=== PATIENT | male | born 1990 | race Caucasian/White ===

== ENCOUNTER 2019-08-13 10:54 | Emergency (ER) | payer BC ==
[2019-08-13] MEDS ORDERED: DIAZEPAM 5 MG TABLET ONE (11:40)
[2019-08-13] MEDS ORDERED: KETOROLAC 30 MG/ML INJ ONE (11:40)
[2019-08-13] MEDS ORDERED: TRAMADOL HCL 50 MG TAB ONE (11:42)
--- NOTE | 2019-08-13 11:49 | ER ---
Nurse's Notes [facility] Name: Miguelito Roper Age: 29 yrs Sex: Male : 1990 Arrival Date: 08/13/2019 Time: 10:58 Bed 20 Private MD: Diagnosis: Sprain of other parts of lumbar spine and pelvis Presentation: 08/13 11:21 Presenting complaint: Patient states: low back pain x 3 days after playing with children. Transition of care: patient was not received from another setting of care. Onset of symptoms was August 10, 2019. Risk Assessment: Do you want to hurt yourself or someone else? Patient reports no desire to harm self or others. Initial Sepsis Screen: Does the patient meet any 2 criteria? No. Patient's initial sepsis screen is negative. Does the patient have a suspected source of infection? No. Patient's initial sepsis screen is negative. Care prior to arrival: None. 11:21 Method Of Arrival: Ambulatory ss 11:21 Acuity: ADÁN 4 ss Triage Assessment: 11:25 General: Appears in no apparent distress. uncomfortable, Behavior is calm, cooperative, bp appropriate for age. Pain: Complains of pain in back. EENT: No deficits noted. Neuro: No deficits noted. Cardiovascular: No deficits noted. Respiratory: No deficits noted. GI: No signs and/or symptoms were reported involving the gastrointestinal system. : No signs and/or symptoms were reported regarding the genitourinary system. Derm: No deficits noted. Musculoskeletal: Circulation, motion, and sensation intact. Range of motion: intact in all extremities. Historical: - Allergies: 11:22 No Known Allergies; ss - Home Meds: 11:22 None [Active]; ss - PMHx: 11:22 None; ss - PSHx: 11:22 None; ss - Immunization history:: Adult Immunizations up to date. - Social history:: Smoking status: Patient reports the use of cigarette tobacco products, smokes one-half pack cigarettes per day. - Ebola Screening: : Patient denies exposure to infectious person Patient denies travel to an Ebola-affected area in the 21 days before illness onset. Screenin:57 Abuse screen: Denies threats or abuse. Denies injuries from another. Nutritional bp screening: No deficits noted. Tuberculosis screening: No symptoms or risk factors identified. Fall Risk None identified. Assessment: 11:25 General: SEE TRIAGE NOTE. Pain: Complains of pain in back. Neuro: Level of bp Consciousness is awake, alert, obeys commands, Oriented to person, place, time, situation, Appropriate for age Gait is steady. 11:55 Reassessment: PT D/C HOME AMBULATORY WITH FAMILY, DX WITH BACK SPRAIN. bp Vital Signs: 11:21 BP 140 / 86; Pulse 82; Resp 16; Pulse Ox 99% on R/A; Weight 99.79 kg; Height 5 ft. 10 ss in. (177.80 cm); Pain 6/10; 11:21 Body Mass Index 31.57 (99.79 kg, 177.80 cm) ED Course: 10:58 Patient arrived in ED. ds1 11:19 Nav Ricketts, RN is Primary Nurse. bp 11:19 Enrique Mendoza MD is Attending Physician. tw4 11:21 Arm band placed on right wrist. ss 11:22 Triage completed. ss 11:57 Patient has correct armband on for positive identification. Bed in low position. Call bp light in reach. Side rails up X2. Adult w/ patient. 11:57 No provider procedures requiring assistance completed. Patient did not have IV access bp during this emergency room visit. Administered Medications: 11:40 Drug: TORadol 60 mg Route: IM; Site: right gluteus; bp 11:54 Follow up: Response: Pain is decreased bp 11:40 Drug: Valium 10 mg Route: PO; bp 11:55 Follow up: Response: Pain is decreased bp 11:40 Drug: traMADol 50 mg Route: PO; bp 11:55 Follow up: Response: Pain is decreased bp Outcome: 11:48 Discharge ordered by . tw4 11:58 Discharged to home ambulatory, with family. bp 11:58 Condition: stable 11:58 Discharge instructions given to patient, Instructed on discharge instructions, follow up and referral plans. medication usage, Demonstrated understanding of instructions, follow-up care, medications, Prescriptions given X 3. 11:58 Patient left the ED. bp Signatures: Kandice Rebollar ds1 Liliana Jose RN RN ss Nav Ricketts, JUANIS RN bp Enrique Mendoza MD MD tw4
--- NOTE | 2019-08-13 11:49 | EDPHYS ---
Physician Documentation [facility] Name: Miguelito Roper Age: 29 yrs Sex: Male : 1990 Arrival Date: 08/13/2019 Time: 10:58 Bed 20 Private MD: ED Physician Enrique Mendoza HPI: 08/13 11:40 This 29 yrs old Male presents to ER via Ambulatory with complaints of Back tw4 Pain. 11:40 The patient presents with pain that is acute, with no known mechanism of injury. The tw4 symptoms are located in the low back. Onset: The symptoms/episode began/occurred 3 day(s) ago. The pain does not radiate. Associated signs and symptoms: The patient has no apparent associated signs or symptoms. The problem was sustained from unknown cause. Modifying factors: The patient symptoms are alleviated by nothing, the patient symptoms are aggravated by nothing. The patient has not experienced similar symptoms in the past. Historical: - Allergies: 11:22 No Known Allergies; ss - Home Meds: 11:22 None [Active]; ss - PMHx: 11:22 None; ss - PSHx: 11:22 None; ss - Immunization history:: Adult Immunizations up to date. - Social history:: Smoking status: Patient reports the use of cigarette tobacco products, smokes one-half pack cigarettes per day. - Ebola Screening: : Patient denies exposure to infectious person Patient denies travel to an Ebola-affected area in the 21 days before illness onset. ROS: 11:40 Constitutional: Negative for fever, chills, and weight loss, Eyes: Negative for injury, tw4 pain, redness, and discharge, Cardiovascular: Negative for chest pain, palpitations, and edema, Respiratory: Negative for shortness of breath, cough, wheezing, and pleuritic chest pain, Abdomen/GI: Negative for abdominal pain, nausea, vomiting, diarrhea, and constipation, MS/Extremity: Negative for injury and deformity, Skin: Negative for injury, rash, and discoloration, Neuro: Negative for headache, weakness, numbness, tingling, and seizure. 11:40 Back: Positive for pain at rest, pain with movement. Exam: 11:40 Constitutional: This is a well developed, well nourished patient who is awake, alert, tw4 and in no acute distress. Head/Face: Normocephalic, atraumatic. Eyes: Pupils equal round and reactive to light, extra-ocular motions intact. Lids and lashes normal. Conjunctiva and sclera are non-icteric and not injected. Cornea within normal limits. Periorbital areas with no swelling, redness, or edema. Chest/axilla: Normal chest wall appearance and motion. Nontender with no deformity. No lesions are appreciated. Cardiovascular: Regular rate and rhythm with a normal S1 and S2. No gallops, murmurs, or rubs. Normal PMI, no JVD. No pulse deficits. Respiratory: Lungs have equal breath sounds bilaterally, clear to auscultation and percussion. No rales, rhonchi or wheezes noted. No increased work of breathing, no retractions or nasal flaring. Abdomen/GI: Soft, non-tender, with normal bowel sounds. No distension or tympany. No guarding or rebound. No evidence of tenderness throughout. MS/ Extremity: Pulses equal, no cyanosis. Neurovascular intact. Full, normal range of motion. Neuro: Awake and alert, GCS 15, oriented to person, place, time, and situation. Cranial nerves II-XII grossly intact. Motor strength 5/5 in all extremities. Sensory grossly intact. Cerebellar exam normal. Normal gait. 11:40 Back: pain, that is mild, ROM is decreased, normal spinal alignment noted, CVA tenderness, is absent. Vital Signs: 11:21 BP 140 / 86; Pulse 82; Resp 16; Pulse Ox 99% on R/A; Weight 99.79 kg; Height 5 ft. 10 ss in. (177.80 cm); Pain 6/10; 11:21 Body Mass Index 31.57 (99.79 kg, 177.80 cm) ss MDM: 11:19 Patient medically screened. tw4 11:40 Data reviewed: vital signs, nurses notes. Data interpreted: Pulse oximetry: tw4 Interpretation: normal. Counseling: I had a detailed discussion with the patient and/or guardian regarding: the historical points, exam findings, and any diagnostic results supporting the discharge/admit diagnosis. Special discussion: I discussed with the patient/guardian in detail that at this point there is no indication for admission to the hospital. It is understood, however, that if the symptoms persist or worsen the patient needs to return immediately for re-evaluation. Administered Medications: 11:40 Drug: TORadol 60 mg Route: IM; Site: right gluteus; bp 11:54 Follow up: Response: Pain is decreased bp 11:40 Drug: Valium 10 mg Route: PO; bp 11:55 Follow up: Response: Pain is decreased bp 11:40 Drug: traMADol 50 mg Route: PO; bp 11:55 Follow up: Response: Pain is decreased bp Disposition: 08/13/19 11:48 Discharged to Home. Impression: Sprain of other parts of lumbar spine and pelvis. - Condition is Stable. - Discharge Instructions: Back Pain, Adult, [id number]. - Prescriptions for Ibuprofen 800 mg Oral Tablet - take 1 tablet by ORAL route every 8 hours As needed take with food; 30 tablet. Cyclobenzaprine 10 mg Oral Tablet - take 1 tablet by ORAL route every 8 hours As needed; 30 tablet. Tramadol 50 mg Oral Tablet - take 1 tablet by ORAL route every 8 hours as needed; 12 tablet. - Work release form, Medication Reconciliation Form, Thank You Letter, Antibiotic Education, Prescription Opioid Use form. - Follow up: Private Physician; When: Upon discharge from the Emergency Department; Reason: Recheck today's complaints, Continuance of care. - Problem is new. - Symptoms have improved. Signatures: Liliana Jose RN RN Nav Jimenez RN RN bp Wadley, Terrence, MD MD tw4 Corrections: (The following items were deleted from the chart) 11:58 11:48 08/13/2019 11:48 Discharged to Home. Impression: Sprain of other parts of lumbar bp spine and pelvis. Condition is Stable. Forms are Medication Reconciliation Form, Thank You Letter, Antibiotic Education, Prescription Opioid Use. Follow up: Private Physician; When: Upon discharge from the Emergency Department; Reason: Recheck today's complaints, Continuance of care. Problem is new. Symptoms have improved. tw4
[2019-08-13 13:20] VITALS: BP 140/86; O2SAT 99
== END 2019-08-13 11:58 | disposition home or self-care (01) ==
LOC: ER 10:54
DX: S33.8XXA Sprain of other parts of lumbar spine and pelvis, initial encounter (principal); F17.210 Nicotine dependence, cigarettes, uncomplicated
CPT/HCPCS: 96372; 99283

== ENCOUNTER 2021-12-04 04:13 | Emergency (ER) | payer BC ==
--- NOTE | 2021-12-04 05:23 | ER ---
Nurse's Notes [facility] Name: Miguelito Roper Age: 31 yrs Sex: Male : 1990 Arrival Date: 12/04/2021 Time: 04:16 Bed 17 Private MD: Diagnosis: Acute suppurative otitis media Presentation: 12/04 04:30 Chief complaint: Patient states: "I woke up about an hour and a half ago with horrible vc1 ear pain.". Coronavirus screen: Vaccine status: Patient reports being unvaccinated. At this time, the client does not indicate any symptoms associated with coronavirus-19. Ebola Screen: No symptoms or risks identified at this time. Risk Assessment: Do you want to hurt yourself or someone else? Patient reports no desire to harm self or others. Onset of symptoms was December 04, 2021 at 02:00. 04:30 Method Of Arrival: Ambulatory vc1 04:30 Acuity: ADÁN 4 vc1 05:37 Initial Sepsis Screen: Does the patient meet any 2 criteria? No. Patient's initial sm5 sepsis screen is negative. Does the patient have a suspected source of infection? No. Patient's initial sepsis screen is negative. Triage Assessment: 04:31 General: Appears in no apparent distress. uncomfortable, Behavior is calm, cooperative, vc1 appropriate for age. Pain: Complains of pain in right ear Pain does not radiate. Pain currently is 8 out of 10 on a pain scale. Quality of pain is described as throbbing, pinching, Pain began suddenly, Is continuous. EENT: Reports pain in right ear. Neuro: Level of Consciousness is awake, alert, obeys commands, Oriented to person, place, time, situation, Appropriate for age. Cardiovascular: No deficits noted. Respiratory: No deficits noted. GI: No deficits noted. : No deficits noted. Derm: No deficits noted. Musculoskeletal: No deficits noted. Historical: - Allergies: 04:31 No Known Allergies; vc1 - Home Meds: 04:31 None [Active]; vc1 - PMHx: 04:31 None; vc1 - PSHx: 04:31 None; vc1 - Immunization history:: Adult Immunizations up to date, Client reports having NOT received the Covid vaccine. Flu vaccine is not up to date. - Social history:: Smoking status: Patient reports the use of cigarette tobacco products, smokes one-half pack cigarettes per day. Screenin:33 Abuse screen: Denies threats or abuse. Nutritional screening: No deficits noted. vc1 Tuberculosis screening: No symptoms or risk factors identified. Fall Risk None identified. Assessment: 05:37 General: Appears in no apparent distress. Behavior is cooperative. Pain: Complains of sm5 pain in right ear. Neuro: No deficits noted. Beasley Agitation-Sedation Scale (RASS): 0 - Alert and Calm Level of Consciousness is awake, alert, obeys commands, Oriented to person, place, time, situation. Cardiovascular: No deficits noted. Capillary refill < 3 seconds Patient's skin is warm and dry. Respiratory: No deficits noted. Airway is patent Trachea midline Respiratory effort is even, unlabored. EENT: Reports pain in right ear. Vital Signs: 04:30 Weight 104.33 kg; Height 5 ft. 10 in. (177.80 cm); Pain 8/10; vc1 05:34 BP 163 / 104; Pulse 72; Resp 18; Temp 97.8; Pulse Ox 97% on R/A; sm5 05:34 Weight 104.33 kg; Height 5 ft. 10 in. (177.80 cm); sm5 05:34 Body Mass Index 33.00 (104.33 kg, 177.80 cm) sm5 ED Course: 04:16 Patient arrived in ED. kz 04:31 Triage completed. vc1 04:33 Arm band placed on right wrist. vc1 04:34 Patient has correct armband on for positive identification. Bed in low position. Call vc1 light in reach. 04:55 Milton Hurtado MD is Attending Physician. breezy 05:21 Zhanna Jackson MD is Referral Physician. breezy 05:34 Temitope Brito RN is Primary Nurse. sm5 05:37 No provider procedures requiring assistance completed. Patient did not have IV access sm5 during this emergency room visit. Administered Medications: 05:36 Drug: Rocephin (cefTRIAXone) 1 grams Route: IM; Site: right gluteus; sm5 05:42 Follow up: Response: No adverse reaction sm5 05:36 Drug: Motrin (ibuprofen) 800 mg Route: PO; sm5 05:42 Follow up: Response: No adverse reaction sm5 05:36 Drug: [place] (HYDROcodone-acetaminophen) 10 mg-325 mg 1 tabs Route: PO; 5 05:42 Follow up: Response: No adverse reaction 5 05:36 Drug: Augmentin (Amoxicillin-Clavulanate) 875 mg Route: PO; 5 05:42 Follow up: Response: No adverse reaction 5 Medication: 05:37 VIS not applicable for this client. 5 Outcome: 05:22 Discharge ordered by MD. [place]ijer[place] 05:42 Discharged to home ambulatory. [facility] 05:42 Condition: stable 05:42 Discharge instructions given to patient, Instructed on discharge instructions, follow up and referral plans. medication usage, Demonstrated understanding of instructions, follow-up care, medications, Prescriptions given X 5 05:43 Patient left the ED. [facility] Signatures: Milton Hurtado MD MD cha Mazur, Sarah, RN RN sm5 Paz Back RN RN vc1 Agata Alcocer
--- NOTE | 2021-12-04 05:23 | EDPHYS ---
Physician Documentation [facility] Name: Miguelito Roper Age: 31 yrs Sex: Male : 1990 Arrival Date: 12/04/2021 Time: 04:16 Bed 17 Private MD: HERBERT Physician Milton Hurtado HPI: 12/04 05:12 This 31 yrs old Male presents to ER via Ambulatory with complaints of Ear breezy Pain. 05:12 The patient presents with pain, moderate. The complaints affect the right ear. Onset: breezy The symptoms/episode began/occurred this morning, today. Modifying factors: The symptoms are alleviated by nothing. Associated signs and symptoms: The patient has no apparent associated signs or symptoms. Severity of symptoms: At their worst the symptoms were moderate in the emergency department the symptoms are unchanged. The patient has not experienced similar symptoms in the past. Historical: - Allergies: 04:31 No Known Allergies; vc1 - Home Meds: 04:31 None [Active]; vc1 - PMHx: 04:31 None; vc1 - PSHx: 04:31 None; vc1 - Immunization history:: Adult Immunizations up to date, Client reports having NOT received the Covid vaccine. Flu vaccine is not up to date. - Social history:: Smoking status: Patient reports the use of cigarette tobacco products, smokes one-half pack cigarettes per day. ROS: 05:14 Constitutional: Negative for fever, chills, and weight loss, Eyes: Negative for injury, breezy pain, redness, and discharge, Neck: Negative for injury, pain, and swelling, Cardiovascular: Negative for chest pain, palpitations, and edema, Respiratory: Negative for shortness of breath, cough, wheezing, and pleuritic chest pain, Abdomen/GI: Negative for abdominal pain, nausea, vomiting, diarrhea, and constipation, Back: Negative for injury and pain, : Negative for injury, bleeding, discharge, and swelling, MS/Extremity: Negative for injury and deformity, Skin: Negative for injury, rash, and discoloration, Neuro: Negative for headache, weakness, numbness, tingling, and seizure. Exam: 05:15 Constitutional: This is a well developed, well nourished patient who is awake, alert, breezy and in no acute distress. Head/Face: Normocephalic, atraumatic. Eyes: Pupils equal round and reactive to light, extra-ocular motions intact. Lids and lashes normal. Conjunctiva and sclera are non-icteric and not injected. Cornea within normal limits. Periorbital areas with no swelling, redness, or edema. Neck: Trachea midline, no thyromegaly or masses palpated, and no cervical lymphadenopathy. Supple, full range of motion without nuchal rigidity, or vertebral point tenderness. No Meningismus. Chest/axilla: Normal chest wall appearance and motion. Nontender with no deformity. No lesions are appreciated. Cardiovascular: Regular rate and rhythm with a normal S1 and S2. No gallops, murmurs, or rubs. Normal PMI, no JVD. No pulse deficits. Respiratory: Lungs have equal breath sounds bilaterally, clear to auscultation and percussion. No rales, rhonchi or wheezes noted. No increased work of breathing, no retractions or nasal flaring. Abdomen/GI: Soft, non-tender, with normal bowel sounds. No distension or tympany. No guarding or rebound. No evidence of tenderness throughout. Back: No spinal tenderness. No costovertebral tenderness. Full range of motion. Skin: Warm, dry with normal turgor. Normal color with no rashes, no lesions, and no evidence of cellulitis. MS/ Extremity: Pulses equal, no cyanosis. Neurovascular intact. Full, normal range of motion. Neuro: Awake and alert, GCS 15, oriented to person, place, time, and situation. Cranial nerves II-XII grossly intact. Motor strength 5/5 in all extremities. Sensory grossly intact. Cerebellar exam normal. Normal gait. Psych: Awake, alert, with orientation to person, place and time. Behavior, mood, and affect are within normal limits. 05:15 ENT: Ear canal(s): are normal, no acute changes, TM's: decreased mobility, erythema, breezy that is moderate, on the right, loss of bony landmarks, that is moderate, on the right, Posterior pharynx: is normal, no acute changes, erythema, that is mild. Vital Signs: 04:30 Weight 104.33 kg; Height 5 ft. 10 in. (177.80 cm); Pain 8/10; vc1 05:34 BP 163 / 104; Pulse 72; Resp 18; Temp 97.8; Pulse Ox 97% on R/A; [facility] 05:34 Weight 104.33 kg; Height 5 ft. 10 in. (177.80 cm); 5 05:34 Body Mass Index 33.00 (104.33 kg, 177.80 cm) [facility] MDM: 04:55 Patient medically screened. [facility] 05:16 Differential diagnosis: otitis media. Data reviewed: vital signs, nurses notes. Data breezy interpreted: supervisor dry paste: not applicable for this patient encounter. rate is 80 beats/min. Counseling: I had a detailed discussion with the patient and/or guardian regarding: the historical points, exam findings, and any diagnostic results supporting the discharge/admit diagnosis. Administered Medications: 05:36 Drug: Rocephin (cefTRIAXone) 1 grams Route: IM; Site: right gluteus; [facility] 05:42 Follow up: Response: No adverse reaction [facility] 05:36 Drug: Motrin (ibuprofen) 800 mg Route: PO; 5 05:42 Follow up: Response: No adverse reaction [facility] 05:36 Drug: [place] (HYDROcodone-acetaminophen) 10 mg-325 mg 1 tabs Route: PO; 5 05:42 Follow up: Response: No adverse reaction [facility] 05:36 Drug: Augmentin (Amoxicillin-Clavulanate) 875 mg Route: PO; 5 05:42 Follow up: Response: No adverse reaction [facility] Disposition Summary: 12/04/21 05:22 Discharge Ordered Location: Home breezy Problem: new breezy Symptoms: have improved breezy Condition: Stable breezy Diagnosis - Acute suppurative otitis media breezy Followup: breezy - With: Private Physician - When: 2 - 3 days - Reason: Recheck today's complaints, Continuance of care, Re-evaluation by your physician Followup: breezy - With: Zhanna Jackson MD - When: 2 - 3 days - Reason: Recheck today's complaints, Re-evaluation by your physician Discharge Instructions: - Discharge Summary Sheet breezy - Otitis Media, Adult breezy - Otitis Media, Adult, [id number] breezy - Earache, Adult breezy Forms: - Medication Reconciliation Form breezy - Thank You Letter breezy - Antibiotic Education breezy - Prescription Opioid Use breezy Prescriptions: - Augmentin 875-125 mg Oral Tablet - take 1 tablet by ORAL route every 12 hours for 10 days; 20 tablet; Refills: 0, breezy Product Selection Permitted - Ibuprofen 600 mg Oral Tablet - take 1 tablet by ORAL route every 6 hours As needed take with food; 30 tablet; breezy Refills: 0, Product Selection Permitted - Karmen-D 12 Hour 60-120 mg Oral Tablet Sustained Release 12 hr - take 1 tablet by ORAL route every 12 hours As needed; 20 tablet; Refills: 0, [facility] Product Selection Permitted - Medrol ([place]) 4 mg Oral Tablets, Dose Pack - take 1 tablet by ORAL route as directed - follow package instructions; 1 breezy packet; Refills: 0, Product Selection Permitted - Tylenol-Codeine #3 300 mg-30 mg Oral - take 2 tablet by ORAL route every 6 hours; 20 tablet; Refills: 0, Product breezy Selection Permitted Signatures: Milton Hurtado MD MD cha Mazur, Sarah RN RN sm5 Paz Back RN RN vc1
[2021-12-04] MEDS ORDERED: LIDOCAINE 2% MPF 5 ML VIAL ONE (05:24)
[2021-12-04] MEDS ORDERED: AMOX/K CLAV 875 MG TAB ONE (05:25)
[2021-12-04] MEDS ORDERED: IBUPROFEN 400 MG TAB ONE (05:25)
[2021-12-04] MEDS ORDERED: HYDROCODONE/APAP 10/325 TAB ONE (05:25)
[2021-12-04] MEDS ORDERED: CEFTRIAXONE 1000 MG/VIAL ONE (05:25)
[2021-12-04] MEDS ORDERED: LIDOCAINE 1% MPF 2 ML AMPULE ONE (05:26)
[2021-12-04 07:39] VITALS: BP 163/104; TEMP 97.8; O2SAT 97
== END 2021-12-04 05:43 | disposition home or self-care (01) ==
LOC: ER 04:13
DX: H66.001 Acute suppurative otitis media without spontaneous rupture of ear drum, right ear (principal); F17.210 Nicotine dependence, cigarettes, uncomplicated
CPT/HCPCS: 96372; 99283

== ENCOUNTER 2022-09-23 15:46 | Emergency (ER) | payer BC ==
--- OUTSIDE RECORDS SUMMARY | 2022-09-23 15:49 | XMS REPORT | Continuity of Care Document ---
:1990 Author Organization [facility] t Address [address] [facility] [address] [place] [address] Care Team Providers Name Role Phone No , Pcp Primary Care Physician Unavailable HAL POLLARD Attending Clinician Unavailable Ken Wang Attending Clinician MARTINEZ WALDEN Attending Clinician Unavailable HAL POLLARD Attending Clinician Unavailable [place] GOMEZ Admitting Clinician Unavailable [place] GOMEZ Admitting Clinician Unavailable Payers Payer Name Policy Type Policy Number Effective Date Expiration Date S frances [employer]BST[employer] PPO AND [id number] 2018 00:00:00 OUT OF STATE Problems Condition Condition Condition Status Onset Resolution Last Treating Co mments Source Name Details Category Date Date Treatment Clinician Date 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 Social History Social Habit Start Date Stop Date Quantity Comments Source History of tobacco Cigarette Smoker [place] [facility] use Exposure to 2022-08-16 2022-08-26 Not sure [place] [facility] SARS-CoV-2 (event) 00:00:00 10:45:00 Alcohol intake 2022-08-26 2022-08-26 Current drinker of [facility] 00:00:00 00:00:00 alcohol (finding) Tobacco use and 2022-02-24 2022-02-24 User of smokeless [facility] exposure 00:00:00 00:00:00 tobacco Sex Ass[birth year] At [birth year] [facility] 00:00:00 00:00:00 Smoking Status Start Date Stop Date Source Tobacco smoking consumption unknown [facility] Smokes tobacco daily 2022-02-24 00:00:00 [facility] th Medications Ordered Filled Start Stop Current Ordering Indication Dosage Frequency Signature Comments Components Source Medication Medication Date Date Medication? Clinician (SIG) Name Name HYDROcodone 2021-07- No [id number] 1{tbl} Take 1 UT -acetaminop 0-13 10-19 tablet by He stephanie bradley ([place]) 00:00: 04:59 mouth 5-325 MG 00 :00 every 4 tablet (four) hours if needed for moderate pain for up to 5 days. methocarbam Yes [id number] 750mg Q.[id number] Take 1 UT ol 9- [id number] tablet Health (Robaxin) 00:00: 3D (750 mg 750 MG 00 total) by tablet mouth in the morning and 1 tablet (750 mg total) at noon and 1 tablet (750 mg total) in the evening. methocarbam Yes [id number] 750mg Q.[id number] Take 1 UT ol 9- [id number] tablet Health (Robaxin) 00:00: 3D (750 mg 750 MG 00 total) by tablet mouth in the morning and 1 tablet (750 mg total) at noon and 1 tablet (750 mg total) in the evening. methocarbam Yes [id number] 750mg Q.[id number] Take 1 UT ol - [id number] tablet Health (Robaxin) 00:00: 3D (750 mg 750 MG 00 total) by tablet mouth in the morning and 1 tablet (750 mg total) at noon and 1 tablet (750 mg total) in the evening. methocarbam No [id number] 750mg Q.[id number] Take 1 UT ol 03-30 10-07 [id number] tablet Health (Robaxin) 00:00: 04:59 3D (750 mg 750 MG 00 :00 total) by tablet mouth in the morning and 1 tablet (750 mg total) at noon and 1 tablet (750 mg total) in the evening. methocarbam 0 Yes [id number] 750mg Q.[id number] Take 1 UT ol 8-29 [id number] tablet Health (Robaxin) 00:00: 3D (750 mg 750 MG 00 total) by tablet mouth in the morning and 1 tablet (750 mg total) at noon and 1 tablet (750 mg total) in the evening. Do all this for 10 days. methocarbam 0 Yes [id number] 750mg Q.[id number] Take 1 UT ol 8-29 [id number] tablet Health (Robaxin) 00:00: 3D (750 mg 750 MG 00 total) by tablet mouth in the morning and 1 tablet (750 mg total) at noon and 1 tablet (750 mg total) in the evening. Do all this for 10 days. methocarbam 0 Yes [id number] 750mg Q.[id number] Take 1 UT ol 8-29 [id number] tablet Health (Robaxin) 00:00: 3D (750 mg 750 MG 00 total) by tablet mouth in the morning and 1 tablet (750 mg total) at noon and 1 tablet (750 mg total) in the evening. Do all this for 10 days. methocarbam 2021- No [id number] 750mg Q.[id number] Take 1 UT ol 829 09-09 [id number] tablet Health (Robaxin) 00:00: 04:59 3D (750 mg 750 MG 00 :00 total) by tablet mouth in the morning and 1 tablet (750 mg total) at noon and 1 tablet (750 mg total) in the evening. Do all this for 10 days. ondansetron Yes [id number] 8mg Take 1 UT ODT (Zofran 8-22 tablet (8 Hea lth ODT) 8 MG 00:00: mg total) disintegrat 00 by mouth ing tablet every 8 (eight) hours if needed for nausea for up to 10 doses. ondansetron 0 Yes [id number] 8mg Take 1 UT ODT (Zofran 8-22 tablet (8 Hea lth ODT) 8 MG 00:00: mg total) disintegrat 00 by mouth ing tablet every 8 (eight) hours if needed for nausea for up to 10 doses. methocarbam 2-0 Yes [id number] 750mg QD Take 1 UT ol 8-22 tablet Health (Robaxin) 00:00: (750 mg 750 MG 00 total) by tablet mouth at night if needed for muscle spasms for up to 10 doses. ondansetron 2-0 Yes [id number] 8mg Take 1 UT ODT (Zofran 8-22 tablet (8 Hea lth ODT) 8 MG 00:00: mg total) disintegrat 00 by mouth ing tablet every 8 (eight) hours if needed for nausea for up to 10 doses. ondansetron 2022-0 Yes [id number] 8mg Take 1 UT ODT (Zofran 8-22 tablet (8 Hea lth ODT) 8 MG 00:00: mg total) disintegrat 00 by mouth ing tablet every 8 (eight) hours if needed for nausea for up to 10 doses. cyclobenzap 2021-0 Yes cyclobenza UT rine 8-03 lizet 10 Health (Flexeril) 14:31: mg tablet 10 MG 12 tablet pantoprazol 2021-0 Yes QD 1 (one) UT e 8-03 time each Health (ProtoNix) 14:31: day. 40 MG EC 11 tablet pantoprazol 2-0 Yes QD 1 (one) UT e 8-03 time each Health (ProtoNix) 14:31: day. 40 MG EC 11 tablet pantoprazol 2-0 Yes QD 1 (one) UT e 8-03 time each Health (ProtoNix) 14:31: day. 40 MG EC 11 tablet pantoprazol 2-0 Yes QD 1 (one) UT e 8-03 time each Health (ProtoNix) 14:31: day. 40 MG EC 11 tablet pantoprazol 2-0 Yes QD 1 (one) UT e 8-03 time each Health (ProtoNix) 14:31: day. 40 MG EC 11 tablet ibuprofen 2-0 Yes UT 800 MG 6-27 Health tablet 00:00: 00 ibuprofen 2022-0 Yes UT 800 MG 6-27 Health tablet 00:00: 00 ibuprofen 2022-0 Yes UT 800 MG 6-27 Health tablet 00:00: 00 ibuprofen 2022-0 Yes UT 800 MG 6-27 Health tablet 00:00: 00 ibuprofen 2022-0 Yes UT 800 MG 6-27 Health tablet 00:00: 00 Karmen-D 2021-0 Yes TAKE 1 UT Allergy & 5-13 TABLET BY Healt h Congestion 00:00: MOUTH 60-120 MG 00 EVERY 12 12 hr HOURS tablet NEEDED FOR ALLERGIES. Karmen-D Yes TAKE 1 UT Allergy & 5-13 TABLET BY Healt h Congestion 00:00: MOUTH 60-120 MG 00 EVERY 12 12 hr HOURS tablet NEEDED FOR ALLERGIES. Karmen-D Yes TAKE 1 UT Allergy & 5-13 TABLET BY Healt h Congestion 00:00: MOUTH 60-120 MG 00 EVERY 12 12 hr HOURS tablet NEEDED FOR ALLERGIES. Karmen-D Yes TAKE 1 UT Allergy & 5-13 TABLET BY Healt h Congestion 00:00: MOUTH 60-120 MG 00 EVERY 12 12 hr HOURS tablet NEEDED FOR ALLERGIES. Karmen-D Yes TAKE 1 UT Allergy & 5-13 TABLET BY Healt h Congestion 00:00: MOUTH 60-120 MG 00 EVERY 12 12 hr HOURS tablet NEEDED FOR ALLERGIES. Vital Signs Vital Name Observation Time Observation Value Comments Source Body height 2022-08-25 19:24:00 177.8 cm [facility] Body weight 2022-08-25 19:24:00 107.956 kg [facility] BMI 2022-08-25 19:24:00 34.15 kg/m2 [facility] Body height 2022-07-05 21:18:00 177.8 cm [facility] Body weight 2022-07-05 21:18:00 107.956 kg [facility] BMI 2022-07-05 21:18:00 34.15 kg/m2 [facility] Body height 2022-05-05 16:37:00 177.8 cm [facility] Body weight 2022-05-05 16:37:00 107.956 kg [facility] BMI 2022-05-05 16:37:00 34.15 kg/m2 [facility] Body height 2022-03-30 18:06:00 177.8 cm [facility] Body weight 2022-03-30 18:06:00 107.956 kg [facility] BMI 2022-03-30 18:06:00 34.15 kg/m2 [facility] Body height 2022-02-24 19:33:00 177.8 cm [facility] Body weight 2022-02-24 19:33:00 106.595 kg [place] [facility] [place] 2022-02-24 19:33:00 [facility]72 [facility] This patient has no known procedures. Encounters Start End Encounter Admission Attending Care Care Encounter Source Date/Time Date/Time Type Type Clinicians Facility Department ID 2022-08-25 Outpatient [facility] [id number] [place] 08:43:50 [id number] [facility] 2022-07-27 Outpatient [facility] [id number] [place] 09:54:29 [id number] [facility] 2022-07-05 Outpatient [facility] [id number] [place] 12:44:01 [id number] [facility] 2022-05-26 Outpatient [facility] [id number] [place] 10:05:10 [id number] [facility] 2022-02-12 Outpatient [facility] [id number] [place] 17:47:00 [id number] [facility] 2023-03-11 2023-03-11 Outpatient HAL POLLARD [facility] [id number] [place] 13:15:00 13:15:00 [facility] 2022-08-26 2022-08-26 Office SHA Miller [facility] [id number] [place] 10:45:00 11:09:44 Visit [facility] [id number] H [facility] [id number] SMI [id number] 1 2022-08-19 2022-08-19 Outpatient HAL POLLARD [facility] [id number] [place] 10:45:00 10:45:00 [facility] 2022-07-08 2022-07-08 Office Hal Pollard [facility] [id number] [place] 10:00:00 10:27:01 Visit [facility] [id number] H [facility] [id number] SMI [id number] 2022-07-08 2022-07-08 Outpatient [facility] [id number] [place] 09:55:00 10:27:01 [facility] 2022-07-08 2022-07-08 Outpatient [facility] [id number] [place] 00:00:00 10:27:01 Health 2022-07-08 2022-07-08 Outpatient [facility] [id number] [place] 10:00:00 10:00:00 Health 2022-06-15 2022-06-15 Outpatient HAL POLLARD [facility] [id number] [place] 11:00:00 11:00:00 Health 2022-05-06 2022-05-06 Office Hal Pollard [facility] [id number] [place] 11:30:00 11:38:43 Visit [facility] [id number] [facility] [place] [id number] SMI [id number] 2022-04-07 2022-04-07 Outpatient WALDEN, [facility] [id number] [place] 11:30:00 11:30:00 [facility] 2022-03-30 2022-03-30 Outpatient [facility] [id number] [place] 13:20:00 14:12:14 Health 2022-03-30 2022-03-30 Office Hal Pollard [facility] [id number] [place] 13:00:00 14:12:14 Visit [facility] [id number] [facility] [place] [id number] SMI [id number] 2022-03-15 2022-03-15 Outpatient HAL POLLARD [id number] [facility] 10:37:00 19:30:00 2022-03-15 2022-03-15 Outpatient WALDEN, [facility] [id number] [place] 13:00:00 13:00:00 [facility] 2022-03-15 2022-03-15 Outpatient HAL POLLARD [facility] [id number] [place] 13:00:00 13:00:00 Health 2022-03-10 2022-03-10 Outpatient [facility] [id number] [place] 13:00:00 14:14:45 Health 2022-02-26 2022-02-26 Outpatient [facility] [id number] [place] 00:00:00 00:00:00 Health 2022-02-24 2022-02-24 Office SHA Walden [facility] [id number] [place] 14:30:00 15:04:39 Visit [facility] [id number] [facility] [place] [id number] 2022-01-27 2022-01-27 Office SHA Walden [facility] [id number] [place] 14:15:00 15:19:57 Visit [facility] [id number] [facility] [place] [id number] Results This patient has no known results.
[2022-09-23] MEDS ORDERED: NA CHLORIDE 0.9% 1,000 ML ONE (17:05)
[2022-09-23 17:06] LABS: Lymphocytes % 23.8 % (15.3-44.8); MPV 7.4 fL (7.6-11.3); RBC Red Blood Cell Count 5.82 M/uL (4.33-5.43)
[2022-09-23 17:20] LABS: Potassium 3.7 mmol/L (3.5-5.1)
[2022-09-23] MEDS ORDERED: LIDOCAINE 1% MPF 5 ML VIAL ONE (18:13)
[2022-09-23] MEDS ORDERED: BUPIVACAINE 0.5% PF 10 ML VIAL ONE (18:13)
--- NOTE | 2022-09-23 18:32 | RAD REPORT ---
EXAM DESCRIPTION: CT - Neck Angio - 09/23/2022 6:07 pm CLINICAL HISTORY: PAIN COMPARISON: No comparisons TECHNIQUE: Axial CT angiography images of the head was performed with multiplanar and maximum intens ity projection reconstructions. Images performed following intravenous administration of 90mL Isovue 370. All CT scans are performed using dose optimization technique as appropriate and may include automated exposure control or mA/KV adjustment according to patient size. FINDINGS: A left aortic arch is identified with normal three vessel configuration of the great vesse ls. No significant flow abnormality is seen of the common carotid bilaterally. No significant stenosis is identified involving the cervical segments of both internal carotid arteri es. Normal flow is seen within both vertebral arteries. The right vertebral artery is nondominant, and es sentially terminates as the right PICA intracranially. Mildly prominent lymph nodes throughout the neck, particularly along the left level 2 A, likely react moisés/inflammatory. IMPRESSION: No significant flow abnormality of the neck vessels is identified. Mildly prominent PA cervical lymph nodes, likely reactive/inflammatory.
--- NOTE | 2022-09-23 19:22 | EDPHYS ---
Physician Documentation [facility] Name: Miguelito Roper Age: 32 yrs Sex: Male : 1990 Arrival Date: 09/23/2022 Time: 15:49 Bed Treatment Private MD: María Kline ED Physician Kurt Tolbert HPI: 09/23 16:08 This 32 yrs old Male presents to ER via Ambulatory with complaints of neck pain. pm1 16:08 The patient or guardian complains of pain, that is acute. The symptoms are located on pm1 the right anterior aspect of neck. Onset: The symptoms/episode began/occurred today. Context: The problem was sustained at home, The neck injury/problem resulted from Unknown. Associated signs and symptoms: The patient has no apparent associated signs or symptoms, Pertinent negatives: fever, sore throat, ear pain, headache. The pain does not radiate. Modifying factors: the symptoms are aggravated by bending over and turning head to the sides. Severity of symptoms: in the emergency department the symptoms a " 2" out of "10". The patient has not experienced similar symptoms in the past. The patient has not recently seen a physician. Patient reports history of snapping his head to the left to crack his neck often. Historical: - Allergies: 16:07 No Known Allergies; aa5 - PMHx: 16:07 None; aa5 - PSHx: 16:07 left knee sx; aa5 - Immunization history:: Adult Immunizations unknown. - Social history:: Smoking status: Patient reports the use of cigarette tobacco products, smokes one pack cigarettes per day. ROS: 16:08 Constitutional: Negative for fever, chills, and weight loss, Cardiovascular: Negative pm1 for chest pain, palpitations, and edema, Respiratory: Negative for shortness of breath, cough, wheezing, and pleuritic chest pain. 16:08 Abdomen/GI: Negative for abdominal pain, nausea, vomiting, diarrhea, and constipation, Back: Negative for injury and pain, MS/Extremity: Negative for injury and deformity, Skin: Negative for injury, rash, and discoloration. 16:08 Neck: Positive for pain with movement, tenderness, of the right anterior aspect of neck. 16:08 All other systems are negative. Exam: 16:08 Constitutional: This is a well developed, well nourished patient who is awake, alert, pm1 and in no acute distress. Head/Face: Normocephalic, atraumatic. 16:08 Back: No spinal tenderness. No costovertebral tenderness. Full range of motion. Skin: Warm, dry with normal turgor. Normal color with no rashes, no lesions, and no evidence of cellulitis. MS/ Extremity: Pulses equal, no cyanosis. Neurovascular intact. Full, normal range of motion. 16:08 Neck: External neck: tenderness, that is mild, of the right anterior aspect of neck, C-spine: vertebral tenderness, is not appreciated, Trachea: no acute changes, ROM/movement: pain, that is mild, with rotation to the left, Meningeal signs: are not present, Kernig's sign is negative, Brudzinski's sign is negative, Lymph nodes: no appreciated lymphadenopathy. 16:08 Cardiovascular: Exam negative for acute changes, Rate: normal, Rhythm: regular, Pulses: no pulse deficits are appreciated. 16:08 Respiratory: Exam negative for acute changes, respiratory distress, shortness of breath. 16:08 Neuro: Exam negative for acute changes, Orientation: is normal, Mentation: is normal, Motor: is normal, moves all fours. Vital Signs: 16:05 BP 132 / 85; Pulse 70; Resp 18 S; Temp 98.2(TE); Pulse Ox 100% on R/A; Weight 99.79 kg aa5 (R); Height 5 ft. 10 in. (177.80 cm) (R); 19:30 BP 118 / 72; Pulse 82; Resp 20; Temp 98(O); Pulse Ox 99% on R/A; pf1 16:05 Body Mass Index 31.57 (99.79 kg, 177.80 cm) aa5 MDM: 15:53 Patient medically screened. pm1 16:42 Data reviewed: vital signs. pm1 19:20 Counseling: I had a detailed discussion with the patient and/or guardian regarding: the pm1 historical points, exam findings, and any diagnostic results supporting the discharge/admit diagnosis, lab results, radiology results, the need for outpatient follow up, to return to the emergency department if symptoms worsen or persist or if there are any questions or concerns that arise at home. 09/23 16:06 Order name: CBC with Diff; Complete Time: 17:09 pm1 09/23 16:06 Order name: BMP; Complete Time: 17:27 pm1 09/23 16:06 Order name: IV Saline Lock; Complete Time: 16:56 pm1 09/23 16:06 Order name: Neck Angio CT; Complete Time: 19:13 pm1 Administered Medications: 17:05 Drug: NS 0.9% 1000 ml Route: IV; Rate: 1000 ml; Site: left antecubital; [facility] 19:00 Follow up: Response: No adverse reaction; Marked relief of symptoms; IV Status: pf1 Completed infusion; IV Intake: 1000ml Disposition Summary: 09/23/22 19:21 Discharge Ordered Location: Home pm1 Problem: new pm1 Symptoms: have improved pm1 Condition: Stable pm1 Diagnosis - Lymphadenopathy pm1 Followup: pm1 - With: Emergency Department - When: As needed - Reason: Worsening of condition Followup: pm1 - With: Private Physician - When: 2 - 3 days - Reason: Recheck today's complaints, Continuance of care, Re-evaluation by your physician Discharge Instructions: - Discharge Summary Sheet pm1 - Lymphadenopathy pm1 Forms: - Medication Reconciliation Form pm1 - Thank You Letter pm1 - Antibiotic Education pm1 - Prescription Opioid Use pm1 Signatures: Dispatcher [employer] EDMS Reina Burkett RN RN aa5 Shabbir Alexandra NP [employer]ATER pm1 María Nair RN RN eh3 Courtney ag RN pf1 Corrections: (The following items were deleted from the chart) 19:23 19:21 Other nonspecific lymphadenitis pm1 pm1
--- NOTE | 2022-09-23 19:22 | ER ---
Nurse's Notes [facility] Name: Miguelito Roper Age: 32 yrs Sex: Male : 1990 Arrival Date: 09/23/2022 Time: 15:49 Bed Treatment Private MD: María Kline Diagnosis: Lymphadenopathy Presentation: 09/23 16:05 Chief complaint: Patient states: neck pain/sore throat that began yesterday. aa5 Coronavirus screen: At this time, the client does not indicate any symptoms associated with coronavirus-19. Ebola Screen: Patient denies travel to an Ebola-affected area in the 21 days before illness onset. Initial Sepsis Screen: Does the patient meet any 2 criteria? No. Patient's initial sepsis screen is negative. Does the patient have a suspected source of infection? No. Patient's initial sepsis screen is negative. Risk Assessment: Do you want to hurt yourself or someone else? Patient reports no desire to harm self or others. Onset of symptoms was 2022. 16:05 Method Of Arrival: Ambulatory aa5 16:05 Acuity: ADÁN 3 aa5 Historical: - Allergies: 16:07 No Known Allergies; aa5 - PMHx: 16:07 None; aa5 - PSHx: 16:07 left knee sx; aa5 - Immunization history:: Adult Immunizations unknown. - Social history:: Smoking status: Patient reports the use of cigarette tobacco products, smokes one pack cigarettes per day. Screenin:15 [facility] ED Fall Risk Assessment (Adult) Score/Fall Risk Level 0 - 2 = Low Risk. Abuse eh3 screen: Denies threats or abuse. Denies injuries from another. Nutritional screening: No deficits noted. Tuberculosis screening: No symptoms or risk factors identified. Assessment: 16:15 General: Appears in no apparent distress. uncomfortable, Behavior is calm, cooperative, eh3 appropriate for age. Pain: Complains of pain in neck and right anterior aspect of neck Noted to be resistant to movement, Also complains of inability to work, difficulty swallowing. Neuro: Level of Consciousness is awake, alert, obeys commands, Oriented to person, place, time, situation. Cardiovascular: Capillary refill < 3 seconds Patient's skin is warm and dry. Respiratory: Airway is patent Respiratory effort is even, unlabored, Respiratory pattern is regular, symmetrical. GI: Abdomen is round non-distended. : No signs and/or symptoms were reported regarding the genitourinary system. EENT: Throat is clear Reports difficulty swallowing. Derm: Skin is pink, warm \T\ dry. Musculoskeletal: Circulation, motion, and sensation intact. Range of motion: intact in all extremities. 17:15 Reassessment: Patient appears in no apparent distress at this time. Patient and/or eh3 family updated on plan of care and expected duration. Pain level reassessed. Patient is alert, oriented x 3, equal unlabored respirations, skin warm/dry/pink. 18:15 Reassessment: Patient appears in no apparent distress at this time. Patient and/or eh3 family updated on plan of care and expected duration. Pain level reassessed. Patient is alert, oriented x 3, equal unlabored respirations, skin warm/dry/pink. Vital Signs: 16:05 BP 132 / 85; Pulse 70; Resp 18 S; Temp 98.2(TE); Pulse Ox 100% on R/A; Weight 99.79 kg aa5 (R); Height 5 ft. 10 in. (177.80 cm) (R); 19:30 BP 118 / 72; Pulse 82; Resp 20; Temp 98(O); Pulse Ox 99% on R/A; pf1 16:05 Body Mass Index 31.57 (99.79 kg, 177.80 cm) aa5 ED Course: 15:49 Patient arrived in ED. mr 15:49 María Kline is Private Physician. mr 15:51 [facility] pm1 15:51 Kurt Tolbert MD is Attending Physician. pm1 16:05 Arm band placed on. aa5 16:06 Triage completed. aa5 16:15 Patient has correct armband on for positive identification. Bed in low position. Call 3 light in reach. Side rails up X 1. Pulse ox on. NIBP on. Door closed. Noise minimized. Lights dimmed. 16:55 Smiley Edwards, RN is Primary Nurse. iw 16:56 Inserted saline lock: 20 gauge in left antecubital area, using aseptic technique. Blood iw collected. Inserted by NAT. 18:[address] In Process Unspecified. EDMS 18:30 Diet: Patient given a heart healthy meal tray. Tolerated well. eh3 19:34 No provider procedures requiring assistance completed. pf1 19:34 IV discontinued, intact, bleeding controlled, No redness/swelling at site. Pressure pf1 dressing applied. Administered Medications: 17:05 Drug: NS 0.9% 1000 ml Route: IV; Rate: 1000 ml; Site: left antecubital; eh3 19:00 Follow up: Response: No adverse reaction; Marked relief of symptoms; IV Status: pf1 Completed infusion; IV Intake: 1000ml Medication: 19:30 VIS not applicable for this client. pf1 Intake: 19:00 IV: 1000ml; Total: 1000ml. pf1 Outcome: 19:21 Discharge ordered by MD. pm1 19:33 Discharged to home ambulatory. pf1 19:33 Condition: improved 19:33 Discharge instructions given to patient, Instructed on discharge instructions, Demonstrated understanding of instructions, follow-up care. 19:34 Patient left the ED. pf1 Signatures: Dispatcher [employer] EDCO Allie Reina mr Smiley Edwards RN RN Reina Burkett RN RN aa5 Shabbir Alexandra, [employer] NETWORK COORDINATOR pm1 María Nair RN RN 3 Courtney ag RN RN pf1 Corrections: (The following items were deleted from the chart) 16:06 16:05 Chief complaint: Patient states: neck pain that began yesterday. aa5 aa5 16:07 16:05 Pulse 70bpm; Resp 18bpm; Spontaneous; Pulse Ox 100% RA; Temp 98.2F Temporal; aa5 99.79 kg Reported; Height 5 ft. 10 in. Reported; BMI: 31.5; aa5 16:08 16:05 Acuity: ADÁN 4 aa5 aa5
[2022-09-23 19:48] VITALS: BP 132/85; TEMP 98.2; O2SAT 100
== END 2022-09-23 19:34 | disposition home or self-care (01) ==
LOC: ER 15:46
DX: R59.1 Generalized enlarged lymph nodes (principal); F17.210 Nicotine dependence, cigarettes, uncomplicated
CPT/HCPCS: 96361; 85025; 80048; 36415; 70498; 96360; 99284; Q9967; J2001; J7030